=== PATIENT | female | born 1975 | race Caucasian/White ===

== ENCOUNTER 2016-08-20 03:35 | Emergency (ER) | payer BC, OTHER ==
[2016-08-20] MEDS ORDERED: ACETAMINOPHEN 325 MG TAB ONE (03:41)
[2016-08-20] MEDS ORDERED: SODIUM CHLORIDE 0.9% 1,000 ML ONE (05:24)
[2016-08-20] MEDS ORDERED: KETOROLAC 30 MG/ML VIAL ONE (05:24)
== END 2016-08-20 06:36 | disposition home or self-care (01) ==
LOC: ER 03:35
DX: B34.9 Viral infection, unspecified (principal)
CPT/HCPCS: 36415 ×2; 71020 ×2; 80053 ×2; 81003 ×2; 85025 ×2; 87804 ×2; 87880 ×2; 96361 ×2; 96374 ×2; 99285; J1885